=== PATIENT | female | born 1965 | race Caucasian/White ===

== ENCOUNTER 2020-01-17 15:15 | Emergency (ER) | payer BC ==
--- OUTSIDE RECORDS SUMMARY | 2020-01-17 15:53 | XMS REPORT | Continuity of Care Document ---
:1965 External Reference #:[id number] Author Name Lindsey Malave M.D. 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 Medicine Problems Description No Information Available Social History Type Date Description Comments Sex Unknown ETOH Use Occasionally consumes alcohol Tobacco Use Start: Unknown End: Patient is a former smoker Unknown Smoking Status Reviewed: 11/23/19 Patient is a former smoker Exercise Type/Frequency Exercises regularly Allergies, Adverse Reactions, Alerts Description No Known Drug Allergies Medications Active Medications SIG Qnty Indications Ordering Provider Date Zyrtec Allergy 1 by mouth every Unknown 10mg Tablets day Immunizations Description No Information Available Vital Signs Date Vital Result Comment 11/23/2019 11:43am Height 65.5 inches 5'5.50" Weight 213.50 lb Heart Rate 87 /min BP Systolic 158 mmHg BP Diastolic 84 mmHg Respiratory Rate 18 /min Pain Level 2 O2 % BldC Oximetry 98 % BMI (Body Mass Index) 35.0 kg/m2 Results Description No Information Available Procedures Description No Information Available Medical Devices Description No Information Available Encounters Description No Information Available Assessments Date Code Description Provider 11/23/2019 G56.01 Carpal tunnel syndrome, right upper limb Lindsey Malave M.D. 11/23/2019 G56.02 Carpal tunnel syndrome, left upper limb Lindsey Malave M.D. Plan of Treatment 11/23/2019 - Lindsey Malave M.D.G56.01 Carpal tunnel syndrome, right upper limbFollow up:Follow up: [id number] Carpal tunnel syndrome, left upper limbFollow up:postop Functional Status Description No Information Available Mental Status Description No Information Available Referrals Description No Information Available
[2020-01-17 17:18] LABS: ABS Basophils 0.1 10^3/ul (0-0.2); ABS Eosinophils 0.2 10^3/ul (0-0.6); ABS Lymphocytes 2.6 10^3/ul (1.0-4.8); ABS Monocytes 0.4 10^3/ul (0-0.8); ABS Neutrophils 3.6 10^3/ul (1.5-7.7); Eosinophil % 2.6 %; Hematocrit 35 % (35-47); Hemoglobin 11.5 g/dL (12.0-16.0); Lymphocyte % 37.9 %; Mean Corpuscular HGB Conc 33 g/dL (31-36); Mean Corpuscular Hemoglobin 22 pg (27-31); Mean Corpuscular Volume 68 fL (80-97); Platelet Count 338 10^3/uL (150-450); Red Blood Count 5.21 10^6 /uL (3.70-4.87); Red Cell Distribution Width 17 % (10-15); White Blood Count 6.8 10^3/uL (3.5-10.8)
[2020-01-17 17:23] LABS: Albumin 4.6 g/dL (3.2-5.2); Albumin/Globulin Ratio 1.6 (1-3); BUN/Creatinine Ratio 21.3 (8-20); Calcium 9.8 mg/dL (8.6-10.3); EGFR African American 90.1 (>60); EGFR Non-African American 74.5 (>60); Globulin 2.8 g/dL (2-4); Potassium 3.9 mmol/L (3.5-5.0); Total Bilirubin 0.5 mg/dL (0.2-1.0); Total Protein 7.4 g/dL (6.4-8.9)
--- NOTE | 2020-01-17 17:27 | ED ---
Hypertension - HPI Summary HPI Summary: 54 year old female presents with blurry vision today. States she woke up with blurry vision in both eyes. She denies any floaters, loss of vision or sparkles. Denies any pain. No headache. No dizziness. No weakness. No difficult speech. No chest pain or shortness breath. States that she went to store and checked her blood pressure and it was 180. She states that she's been told she's has prehypertensive and is not on any meds. She does have family history of blood pressure. She wears glasses. She had an eye exam couple months that was normal. - History of Current Complaint Chief Complaint: EDHypertension Stated Complaint: HIGH BLOOD PRESSURE PER PT Time Seen by Provider: 01/17/20 16:36 - Allergies/Home Medications Allergies/Adverse Reactions: Allergies Allergy/AdvReac Type Severity Reaction Status Date / Time No Known Allergies Allergy Verified 01/17/20 17:53 Home Medications: Home Medications Cetirizine* [ZyrTEC 10 MG TAB*] 10 mg PO DAILY 01/17/20 [History Confirmed 01/16] Melatonin/Pyridoxine HCl (B6) [Melatonin 3 mg Tablet] 1 each PO BEDTIME [History Confirmed 01/17/20] Vitamin B Complex TAB* [B Complex-50*] 1 tab PO DAILY 01/17/20 [History Confirmed 01/17/20] PMH/Surg Hx/FS Hx/Imm Hx Endocrine/Hematology History: Denies: Hx Anticoagulant Therapy Respiratory History: Denies: Hx Asthma - Cancer History Hx Chemotherapy: No Hx Radiation Therapy: No Infectious Disease History: No Infectious Disease History: Denies: Traveled Outside the [place] in Last 30 Days - Family History Known Family History: Positive: Hypertension - Social History Alcohol Use: Weekly Substance Use Type: Reports: None Smoking Status (MU): Former Smoker Review of Systems Negative: Fever Positive: Blurred Vision Negative: Chest Pain Negative: Shortness Of Breath All Other Systems Reviewed And Are Negative: Yes Physical Exam Triage Information Reviewed: Yes Vital Signs On Initial Exam: Initial Vitals Temp Pulse Resp BP Pulse Ox 98.7 F 88 16 150/84 98 01/17/20 15:19 01/17/20 15:19 01/17/20 15:19 01/17/20 15:19 01/17/20 15:19 Vital Signs Reviewed: Yes Appearance: Positive: Well-Appearing Skin: Positive: Warm, Dry Head/Face: Positive: Normal Head/Face Inspection Eyes: Positive: Normal, EOMI, MARION, Conjunctiva Clear ENT: Positive: Pharynx normal, TMs normal Respiratory/Lung Sounds: Positive: Clear to Auscultation, Breath Sounds Present Cardiovascular: Positive: Normal, RRR Musculoskeletal: Positive: Normal Neurological: Positive: Sensory/Motor Intact, Alert, Oriented to Person Place, Time, CN Intact II-III Psychiatric: Positive: Normal Procedures - Sedation Patient Received Moderate/Deep Sedation with Procedure: No Diagnostics - Vital Signs Vital Signs Temp Pulse Resp BP Pulse Ox 01/17/20 15:19 98.7 F 88 16 150/84 98 - Laboratory Lab Results: Lab Results 01/17/20 01/17/20 01/17/20 Range/Units 16:55 16:55 16:55 WBC 6.8 (3.5-10.8) 10^3/uL RBC 5.21 H (3.70-4.87) 10^6 /uL Hgb 11.5 L (12.0-16.0) g/dL Hct 35 (35-47) % MCV 68 L (80-97) fL MCH 22 L (27-31) pg MCHC 33 (31-36) g/dL RDW 17 H (10-15) % Plt Count 338 (150-450) 10^3/uL MPV 8.0 (7.4-10.4) fL Neut % (Auto) 52.6 % Lymph % (Auto) 37.9 % [place] % (Auto) 5.8 % Eos % (Auto) 2.6 % Baso % (Auto) 1.1 % Absolute Neuts (auto) 3.6 (1.5-7.7) 10^3/ul Absolute Lymphs (auto) 2.6 (1.0-4.8) 10^3/ul Absolute Monos (auto) 0.4 (0-0.8) 10^3/ul Absolute Eos (auto) 0.2 (0-0.6) 10^3/ul Absolute Basos (auto) 0.1 (0-0.2) 10^3/ul Absolute Nucleated RBC 0.0 10^3/ul Nucleated RBC % 0.0 Sodium 137 (135-145) mmol/L Potassium 3.9 (3.5-5.0) mmol/L Chloride 102 (101-111) mmol/L Carbon Dioxide 28 (22-32) mmol/L Anion Gap 7 (2-11) mmol/L BUN 17 (6-24) mg/dL Creatinine 0.80 (0.51-0.95) mg/dL Est GFR ( Amer) 90.1 (>60) Est GFR (Non-Af Amer) 74.5 (>60) BUN/Creatinine Ratio 21.3 H (8-20) Glucose 126 H (70-100) mg/dL Lactic Acid 0.9 (0.5-2.0) mmol/L Calcium 9.8 (8.6-10.3) mg/dL Total Bilirubin 0.50 (0.2-1.0) mg/dL AST 16 (13-39) U/L ALT 14 (7-52) U/L Alkaline Phosphatase 59 (34-104) U/L Total Protein 7.4 (6.4-8.9) g/dL Albumin 4.6 (3.2-5.2) g/dL Globulin 2.8 (2-4) g/dL Albumin/Globulin Ratio 1.6 (1-3) Result Diagrams: 01/17/20 16:55 01/17/20 16:55 Lab Statement: Any lab studies that have been ordered have been reviewed, and results considered in the medical decision making process. - CT brain CT Interpretation Completed By: Radiologist Summary of CT Findings: IMPRESSION: No acute findings. - EKG No standard instances Cardiac Rate: NL EKG Rhythm: Sinus Rhythm Summary of EKG Findings: sinus rhythm Hypertension Course/Dx - Course Course Of Treatment: 54 year old female presents with blurry vision today. States she woke up with blurry vision in both eyes. She denies any floaters, loss of vision or sparkles. Denies any pain. No headache. No dizziness. No weakness. No difficult speech. No chest pain or shortness breath. States that she went to store and checked her blood pressure and it was 180. She states that she's been told she's has prehypertensive and is not on any meds. She does have family history of blood pressure. She wears glasses. She had an eye exam couple months that was normal. On exam no neuro deficit noted. Blood pressure is 155. lab work within normal limits. visual acuity extremely reduced bilaterally. discussed case with dr martell. got CT which shows no acute pathology. will have follow up with optho. told if develop headache, dizziness to return. pateint understand and agrees with plan. - Diagnoses Differential Diagnosis/HQI PQRI: Hypertensive Crisis, Hypertensive Urgency Provider Diagnoses: Blurry vision Discharge ED - Sign-Out/Discharge Documenting (check all that apply): Patient Departure - Discharge Plan Condition: Good Disposition: HOME Patient Education Materials: Blurred Vision (ED) Forms: *Work Release Referrals: Nic Christianson MD [Primary Care Provider] - Josh Hill MD [Medical Doctor] - Additional Instructions: follow up with optho follow up with primary about blood pressure Return to ED if develop severe headache, dizziness, or any new or worsening symptoms - Billing Disposition and Condition Condition: GOOD Disposition: Home
[2020-01-17 19:38] VITALS: BP 172/86
== END 2020-01-17 19:37 | disposition home or self-care (01) ==
LOC: ED 15:15
DX: H53.8 Other visual disturbances (principal); Z87.891 Personal history of nicotine dependence
CPT/HCPCS: 36415; 70450; 80053; 83605; 85025; 85060; 93005; 99282